=== PATIENT | male | born 1980 | race Caucasian/White ===

== ENCOUNTER 2018-03-21 17:23 | Emergency (ER) | payer BC ==
[2018-03-21 17:36] VITALS: BP 143/95
--- NOTE | 2018-03-21 19:18 | UC ---
Respiratory Complaint HPI - HPI Summary HPI Summary: 37-year-old male presents requesting chest x-ray to clear him for oral surgery tomorrow. He states that he had a consultation with the oral surgeon today and because he reported to him that he's been having a persistent occasionally productive cough for the past 3 weeks that the surgeon recommended he come to urgent care to have a chest x-ray performed. Patient states that he had a cold that started approximately 3 weeks ago that he had gotten from family members with similar symptoms. His cold symptoms have subsided however his cough has continued to persist. Cough is occasionally productive for clear to yellow sputum. Denies fever, chills, nasal congestion, sinus congestion, sore throat, dizziness, weakness, diaphoresis, chest pain, palpitations, abdominal pain, nausea, vomiting, or diarrhea. She is presently on penicillin 500 mg 3 times a day for treatment of his dental infection. - History of Current Complaint Chief Complaint: UCRespiratory Stated Complaint: CHEST CONGESTION Time Seen by Provider: 03/21/18 18:55 Hx Obtained From: Patient Pain Intensity: 6 - Allergies/Home Medications Allergies/Adverse Reactions: Allergies Allergy/AdvReac Type Severity Reaction Status Date / Time meperidine [From Demerol] Allergy Intermediate Agitation Verified 03/21/18 17:37 Home Medications: Home Medications Esomeprazole Magnesium [Nexium] 40 mg PO DAILY WITH MEAL 03/21/18 [History Confirmed 03/21/18] PMH/Surg Hx/FS Hx/Imm Hx Previously Healthy: Yes GI/ History: Gastroesophageal Reflux - Surgical History Surgical History: Yes Surgery Procedure, Year, and Place: hy. hernia surgery - Family History Known Family History: Positive: Non-Contributory - Social History Occupation: Employed Full-time Lives: With Family Alcohol Use: Rare Substance Use Type: None Smoking Status (MU): Former Smoker When Did the Patient Quit Smoking/Using Tobacco: 5 yrs ago Household Exposure Type: Cigarettes Review of Systems All Other Systems Reviewed And Are Negative: Yes Constitutional: Negative: Fever, Chills Skin: Positive: Negative Eyes: Negative: Drainage, Eye Redness ENT: Negative: Sore Throat, Ear Ache, Nasal Discharge, Sinus Congestion, Sinus Pain/Tenderness Respiratory: Positive: Cough. Negative: Shortness Of Breath Cardiovascular: Negative: Palpitations, Chest Pain Gastrointestinal: Negative: Abdominal Pain, Vomiting, Diarrhea, Nausea Genitourinary: Positive: Negative Musculoskeletal: Positive: Negative Neurological: Positive: Negative Is Patient Immunocompromised?: No Physical Exam - Summary Physical Exam Summary: GENERAL APPEARANCE: Well developed, well nourished, alert and cooperative, and appears to be in no acute distress. EYES: Conjunctiva clear. No discharge. Vision is grossly intact. EARS: External auditory canals and tympanic membranes clear, hearing grossly intact. NOSE: No nasal congestion or discharge. THROAT: Oral cavity and pharynx normal. No inflammation, swelling, exudate, or lesions. Teeth and gingiva in good general condition. NECK: Neck supple, non-tender without lymphadenopathy. CARDIAC: Normal S1 and S2. No S3, S4 or murmurs. Rhythm is regular. There is no peripheral edema, cyanosis or pallor. Extremities are warm and well perfused. Capillary refill is less than 2 seconds. LUNGS: Clear to auscultation and percussion without rales, rhonchi, wheezing or diminished breath sounds. ABDOMEN: Positive bowel sounds. Soft, nondistended, nontender. No guarding or rebound. No masses or hepatosplenomegally. MUSKULOSKELETAL: ROM intact to all extremities. No joint erythema or tenderness. Normal muscular development. Normal gait. SKIN: Skin normal color, texture and turgor with no lesions or eruptions. Triage Information Reviewed: Yes Vital Signs: Initial Vital Signs Temp 99.4 F 03/21/18 17:30 Pulse 83 03/21/18 17:30 Resp 18 03/21/18 17:30 BP 143/95 03/21/18 17:30 Pulse Ox 99 03/21/18 17:30 Diagnostic Evaluation - Laboratory O2 Sat by Pulse Oximetry: 99 Respiratory Course/Dx - Course Course Of Treatment: 37-year-old male presents requesting chest x-ray to clear him for oral surgery tomorrow. He states that he had a consultation with the oral surgeon today and because he reported to him that he's been having a persistent occasionally productive cough for the past 3 weeks that the surgeon recommended he come to urgent care to have a chest x-ray performed. Patient states that he had a cold that started approximately 3 weeks ago that he had gotten from family members with similar symptoms. His cold symptoms have subsided however his cough has continued to persist. Cough is occasionally productive for clear to yellow sputum. Denies fever, chills, nasal congestion, sinus congestion, sore throat, dizziness, weakness, diaphoresis, chest pain, palpitations, abdominal pain, nausea, vomiting, or diarrhea. She is presently on penicillin 500 mg 3 times a day for treatment of his dental infection. Afebrile. Mildly hypertensive otherwise vitals are within normal parameters. Exam revealed a well-appearing adult male in no acute distress. Heart rate was regular with no murmurs or extra sounds. Bilateral breath sounds were clear. Patient did have an occasional cough heart was did not produce any sputum during his evaluation. Remainder of exam was unremarkable. Chest x-ray showed no acute pathology. Discussed with patient that this was only a preliminary reading and that the official reading by the radiologist would not be performed until tomorrow morning some time. Explained to patient that I saw no specific cause for his persistent cough however I also did not see any indication of a infectious process. This could be just a lingering cough from his previous upper respiratory infection. Postnasal drip or GERD are other possible explanations. I see no indication for him not to have his procedure however if he is having general anesthesia this will ultimately need to be determined by anesthesiology. Patient verbalizes understanding. - Differential Dx/Diagnosis Differential Diagnosis/HQI/PQRI: Bronchitis, Lower Resp Infection, Sinusitis Provider Diagnosis: Cough Discharge - Sign-Out/Discharge Documenting (check all that apply): Patient Departure All imaging exams completed and their final reports reviewed: No - Discharge Plan Condition: Stable Disposition: HOME Referrals: Rancho Shrestha MD [Primary Care Provider] - Additional Instructions: I did not see any evidence of pneumonia on the chest x-ray performed in the clinic tonight. The x-ray will be reviewed by the radiologist tomorrow. We will review the reading and contact you if they see something that I did not. Your heart rate was regular without any abnormal heart sounds, both of the lungs were clear, and rest of your exam was unremarkable. The oral surgeon will need to contact [facility] tomorrow to obtain the official reading of the chest x-ray. I did note that your blood pressure was slightly elevated in the clinic today which may be related to your pain however it is recommended that you follow up with your primary care provider within 4 weeks to have this rechecked. - Billing Disposition and Condition Condition: STABLE Disposition: Home
--- NOTE | 2018-03-22 10:15 | UC ---
- Progress Note Progress Note: Chest x-ray reading by radiologist of chest x-ray from March 21, 2018 read as minimal right basilar atelectasis. Provider from the same date reading was no pneumonia. The minimal right basilar atelectasis does not change treatment therefore there is no discrepancy. Course/Dx - Diagnoses Provider Diagnoses: Cough Discharge - Sign-Out/Discharge Documenting (check all that apply): Patient Departure All imaging exams completed and their final reports reviewed: Yes - Discharge Plan Condition: Stable Disposition: HOME Referrals: Rancho Shrestha MD [Primary Care Provider] - Additional Instructions: I did not see any evidence of pneumonia on the chest x-ray performed in the clinic tonight. The x-ray will be reviewed by the radiologist tomorrow. We will review the reading and contact you if they see something that I did not. Your heart rate was regular without any abnormal heart sounds, both of the lungs were clear, and rest of your exam was unremarkable. The oral surgeon will need to contact [facility] tomorrow to obtain the official reading of the chest x-ray. I did note that your blood pressure was slightly elevated in the clinic today which may be related to your pain however it is recommended that you follow up with your primary care provider within 4 weeks to have this rechecked. - Billing Disposition and Condition Condition: STABLE Disposition: Home
== END 2018-03-21 19:25 | disposition home or self-care (01) ==
LOC: UCEAST 17:23
DX: R05 Cough (principal); K21.9 Gastro-esophageal reflux disease without esophagitis; Z79.899 Other long term (current) drug therapy; Z88.8 Allergy status to other drugs, medicaments and biological substances; Z87.891 Personal history of nicotine dependence
CPT/HCPCS: 71046; 99211; G0463